=== PATIENT | male | born 1995 | race Caucasian/White ===

== ENCOUNTER 2022-01-07 20:08 | Emergency (ER) | payer MEDICAID, SELFPAY ==
[2022-01-07 20:09] VITALS: BP 138/90; PULSE 88; RESP 16; TEMP 36.6; O2SAT 97; BMI 42.3
--- NOTE | 2022-01-07 20:19 | EX.ED.DYSGE1 ---
HPI History of Present Illness Chief Complaint: Abd Pain Informant: patient Onset/Context/Timing Onset: Today Context: Gradual Onset Timing: Waxes and wanes Current Severity: Moderate Maximum Severity: Severe Narrative Narrative: Patient presents secondary to abdominal pain. He states it seems to be generalized diffusely but worse in the epigastrium. Pain started approximately 6 hours prior to arrival. He was able to eat breakfast this morning but did not want to eat lunch. Pain started around 2 PM. He does report a history of hiatal hernia. He is no longer on medication for this. No fever or chills. He has had a couple bowel movements today he states that are not quite normal but not diarrhea either. No urinary symptoms. No vomiting. [facility] Medical History (Updated 01/07/22 @ 21:[address] Ondina Tamez MD) GERD (gastroesophageal reflux disease) Hiatal hernia Home Medications hydrocodone-acetaminophen 5-325mg 5mg-325mg 1 tab PO Q6H PRN pain 3 days #10 tabs 01/07/22 [Rx Last Taken Unknown] omeprazole 40 mg capsule,delayed release 40 mg PO DAILY 4 weeks #28 caps 01/07/22 [Rx Last Taken Unknown] ondansetron 4 mg disintegrating tablet 4 mg PO Q8H PRN nausea and vomiting #10 tabs 01/07/22 [Rx Last Taken Unknown] Allergy/AdvReac Type Severity Reaction Status Date / Time No Known Allergies Allergy Verified 01/07/22 20:10 Social History Smoking Status: Current every day smoker tobacco type: cigarettes ROS ROS ED Constitutional Constitutional ED: Denies chills or fever(s) Eyes Eyes: Denies change in vision or discharge from eye(s) ENT ENT ED: Denies discharge from eye(s), rhinorrhea or sore throat Cardiovascular Cardiovascular: Denies chest pain or palpitations Respiratory/Chest Respiratory/Chest: Denies cough or dyspnea Gastrointestinal Gastrointestinal: Reports abdominal pain; Denies diarrhea, nausea or vomiting Genitourinary Genitourinary ED: Denies difficulty urinating or dysuria Musculoskeletal Musculoskeletal: Denies back pain or extremity pain Integumentary Denies Abrasions or rash Neurologic Neurologic: Denies headache(s) or weakness Allergic/Immunologic Allergic/Immunologic ED: Denies lip swelling or urticaria EXAM Physical Exam Const Vital Signs: 01/07/22 20:09 Temperature 97.8 F Temperature Source Temporal Pulse Rate 88 Respiratory Rate 16 Blood Pressure 138/90 H Blood Pressure Mean 106 Pulse Ox 97 Oxygen Delivery Method Room Air Positive well nourished and well developed General Appearance ED: well developed HEENT Reports moist mucous membranes Eyes PERRL and EOMs intact bilaterally Chest Wall inspection of chest normal and palpation of chest normal Resp normal respiratory effort and clear to auscultation bilaterally Cardio regular rate and regular rhythm GI GI Narrative: Mild diffuse tenderness of patient, worse in the epigastric region. No guarding or rebound. Hypoactive bowel sounds noted. Extremity normal to inspection Neuro oriented x3, CN's II-XII intact bilaterally and no sensory deficits noted Motor Exam: strength 5/5 throughout Psych mental status grossly normal Skin no rashes or lesions noted MDM MDM MDM Narrative Medical decision making narrative: Patient was given morphine and Zofran along with IV fluids. IV Protonix given. Lab work obtained. Lab Data Attestation: I reviewed the patient's lab results. Labs: Laboratory Results - last 24 hr 01/07/22 01/07/22 20:25 20:25 WBC 14.2 H RBC 5.55 Hgb 16.4 Hct 48.5 MCV 87.4 MCH 29.5 MCHC 33.8 RDW Std Deviation 38.9 RDW Coeff of Manav 12.3 Plt Count 308 MPV 9.1 Immature Gran % (Auto) 0.400 Neut % (Auto) 74.3 H Lymph % (Auto) 17.6 L [place] % (Auto) 5.6 Eos % (Auto) 1.7 Baso % (Auto) 0.4 Absolute Neuts (auto) 10.6 H Absolute Lymphs (auto) 2.50 Nucleated RBC % 0 Sodium 137 Potassium 3.6 Chloride 104 Carbon Dioxide 27.0 Anion Gap 6 BUN 11 Creatinine 1.07 Estim Creat Clear Calc 99.53 Est GFR (MDRD) Af Amer 109 Est GFR (MDRD) Non-Af 90 BUN/Creatinine Ratio 10.3 Glucose 100 Calcium 8.9 Total Bilirubin 0.50 Direct Bilirubin 0.18 AST 16 ALT 33 Alkaline Phosphatase 103 Total Protein 8.4 H Albumin 3.4 Globulin 5.0 H Lipase 56 L Radiography Diagnostic Testing: Clinical Impression(s) from Imaging Studies Abdomen/Pelvis CT 01/07/22 20:55 IMPRESSION: Mild splenomegaly. Gynecomastia. Small sliding hiatal hernia. No acute intra-abdominal pathology. Electronically Signed: Dion Li DO at 21:54 EDT , Treatment and Re-Evaluation Narrative: CBC significant for a white count of 14.2. Chemistry studies unremarkable with normal LFTs and lipase. In light of his epigastric pain and leukocytosis CT scan with IV contrast only is obtained. This reveals evidence of a small sliding hiatal hernia but no acute intra-abdominal pathology. Patient will be given analgesics for home along with Prilosec. He will be referred to GI for follow-up if not improving. Return instructions provided. Discharge Plan Triage Chief Complaint: Abd Pain ED Provider: Ondina Tamez Dx/Rx/DC Orders Clinical Impression: Abdominal pain, epigastric Instructions: ED Epigastric Pain Uncertain Cause Prescriptions: New hydrocodone-acetaminophen 5-325 mg tablet 1 tab PO Q6H PRN (Reason: pain) 3 Days Qty: 10 0RF omeprazole 40 mg capsule,delayed release(DR/EC) 40 mg PO DAILY 28 Days Qty: 28 0RF ondansetron 4 mg tablet,disintegrating 4 mg PO Q8H PRN (Reason: nausea and vomiting) Qty: 10 0RF Primary Care Provider: Care Physician,No Primary Referrals: Rl Cartwright DO [STAFF PHYSICIAN] - As Needed NOT,DEFINED [NON-STAFF] - Disposition Disposition: Home, Self Care
[2022-01-07] MEDS: Morphine 4 MG/ML Syringe IV (20:24)
[2022-01-07] MEDS: Ondansetron 4 MG/2 ML Vial IV (20:24)
[2022-01-07] MEDS: 0.9% Normal Saline 1,000 ML 150 ML IV (20:24)
[2022-01-07 20:30] LABS: Absolute Neutrophil Count 10.6 X10^3/uL (2.0-7.7); Basophil# 0.05 X10^3/uL; Basophil% 0.4 % (0-1); Eosinophil# 0.24 X10^3/uL; Eosinophils% 1.7 % (0-5); Hematocrit 48.5 % (40-54); Hemoglobin 16.4 g/dL (13.0-16.5); Lymphocyte % 17.6 % (19-41); Mean Corp Hgb Conc 33.8 g/dL (32-36); Mean Corpuscular Hgb 29.5 pg (27.0-32.0); Mean Corpuscular Volume 87.4 fL (80-94); Mean Platelet Vol. 9.1 fl (6.2-12.0); Monocyte# 0.79 X10^3/uL; Monocyte% 5.6 % (0-10); NRBC Flagged by Analyzer 0 % (0-5); Neutrophil # 10.58 X10^3/uL (2.7-7.7); Neutrophil % 74.3 % (47-70); Platelet Count 308 K/mm3 (150-450); RBC Distribution Width CV 12.3 % (11.6-14.6); RBC Distribution Width SD 38.9 fl (35.1-43.9); Red Blood Count 5.55 M/mm3 (4.6-6.2); White Blood Count 14.2 K/mm3 (4.4-11.0)
[2022-01-07 20:51] LABS: AST(SGOT) 16 U/L (15-37); Alanine Aminotransfer ALT/SGPT 33 U/L (16-61); Albumin, Serum 3.4 g/dL (3.2-5.0); Alkaline Phosphatase 103 U/L (45-117); Anion Gap 6 (5-15); BUN 11 mg/dL (7-18); BUN/Creat Ratio 10.3 RATIO (10-20); Bilirubin, Direct 0.18 mg/dL (0.00-0.30); Calcium,Total 8.9 mg/dL (8.5-10.1); Chloride 104 mmol/L (98-107); Creatinine, Serum 1.07 mg/dL (0.70-1.30); EST Glomerular Filtration Rate 90 mL/min (>60); Est Glom Filt Rate - Afr Amer 109 mL/min (>60); Estimated Creatinine Clearance 99.53 ml/min; Glucose 100 mg/dL (74-106); Lipase 56 U/L (73-393); Potassium 3.6 mmol/L (3.5-5.1); Protein, Total 8.4 g/dL (6.4-8.2); Sodium Level 137 mmol/L (136-145)
--- NOTE | 2022-01-07 20:55 | CT_ITS ---
INDICATION: abd pain, leukocytosis EXAMINATION: CT ABDOMEN AND PELVIS WITH CONTRAST - CT Abdomen And Pelvis W/ Contrast Injection TECHNIQUE: Helically acquired images were obtained of the abdomen and pelvis following IV contrast. A radiation dose optimization technique was used for this scan. IV Contrast dosage and agent: 100 mL of ISOVUE-300. Oral contrast: None. COMPARISON: None. FINDINGS: LOWER CHEST: Lung bases are clear. No cardiomegaly or pericardial effusion. There is mild bilateral gynecomastia. There is a sliding hiatal hernia. LIVER: Homogeneous. No focal mass. GALLBLADDER AND BILIARY TREE: No calcified gallstones. No gallbladder distension or wall edema. No intra- or extrahepatic biliary ductal dilation. PANCREAS: No focal cystic or solid mass. SPLEEN: 13.4 cm in length spleen measurement consistent with at least splenomegaly. Normal density and contour. No mass. ADRENAL GLANDS: No nodules. KIDNEYS, URETERS and BLADDER: Normal renal size and position. No mass. No hydronephrosis. Bladder is unremarkable. PERITONEUM: No ascites or free air. No other fluid collection. BOWEL: No evidence of acute appendicitis. No abnormally distended bowel loops or air fluid levels. No wall thickening or mass. No focal inflammatory changes. LYMPH NODES: No enlarged mesenteric or retroperitoneal lymph nodes. VESSELS: Aorta is non-dilated. REPRODUCTIVE ORGANS: Normal prostate gland. ABDOMINAL WALL: No discrete abdominal or pelvic wall hernia. BONES: No lytic or blastic abnormality. Distal thoracic spine vertebral body endplate herniation pits. No fracture. CT/Abdomen/Pelvis W IV Cont ONLY IMPRESSION: Mild splenomegaly. Gynecomastia. Small sliding hiatal hernia. No acute intra-abdominal pathology. Electronically Signed: Dion Li DO at 21:54 EDT ,
[2022-01-07 22:05] VITALS: BP 118/68; PULSE 70; RESP 15; O2SAT 98
== END 2022-01-07 22:06 | disposition home or self-care (01) ==
PROVIDERS: Emergency Provider Emergency Medicine; Visit Provider Emergency Medicine
DX: R10.13 Epigastric pain (principal); K21.9 Gastro-esophageal reflux disease without esophagitis; F17.210 Nicotine dependence, cigarettes, uncomplicated; Z79.899 Other long term (current) drug therapy
CPT/HCPCS: 74177; 80048; 80076; 83690; 85025; 96365; 96375; 99283; J7030; Q9967; J2405

== ENCOUNTER 2022-06-13 10:44 | Emergency (ER) | payer MEDICAID, SELFPAY ==
[2022-06-13 10:45] VITALS: BP 146/101; PULSE 62; RESP 18; TEMP 36.6; O2SAT 99; BMI 46.0
--- NOTE | 2022-06-13 11:54 | US_ITS ---
STUDY: ABDOMINAL ULTRASOUND - RIGHT UPPER QUADRANT REASON FOR VISIT: Male, 27 years old right upper quadrant pain. TECHNIQUE: Ultrasound evaluation of the right upper quadrant was performed with real-time and static jurado-scale imaging. TECHNICAL QUALITY: Limited. Examination limited due to a combination of factors including obesity and bowel gas. COMPARISON: None. FINDINGS: Liver: The liver is mildly enlarged and measures 18 cm. There is increased echogenicity consistent with fatty infiltration. The bile ducts are within normal limits. There is hepatic color flow. The direction of portal flow is hepatopetal. There is no demonstrated mass lesion. Gallbladder: Normal distended gallbladder. The gallbladder wall measures 2.0 mm. There is a negative sonographic Haque''s sign. There is no pericholecystic fluid. There are no gallstones. Common Bile Duct (C.B.D.): The common bile duct measures 7 mm. Pancreas: There is nonvisualization of the pancreas due to overlying bowel gas. Right Kidney: Normal size of the right kidney. The right kidney measures 10.3 cm x 5.9 cm x 4.3 cm. Normal renal cortex. The right cortex measures 1.2 cm. There is no demonstrated renal mass or cyst. There is no right hydronephrosis. US/Gallbladder IMPRESSION: Borderline hepatomegaly. Diffuse fatty infiltration of the liver. Electronically Signed: Hemant Wood MD at 13:27 EST ,
--- NOTE | 2022-06-13 11:55 | ED.VIS.GI ---
HPI HPI - GI History of Present Illness Chief Complaint: Abd Pain Narrative Narrative: 27-year-old male who denies significant past medical history presents with epigastric to right upper quadrant abdominal pain that has had since this morning. He relates remote history that he was seen in the emergency department a few months back and was told that his gallbladder was inflamed. However, he attempted to follow-up with a surgeon but was never able to connect. He presents with pain that began this morning, his last meal being yesterday evening. He denies any fevers but states he is felt chilled on occasion. No nausea or vomiting. He has had constipation but denies any diarrhea or other problems with bowel movements. No exacerbating or alleviating factors to his right upper quadrant to epigastric pain. States it feels more dull and achy, and almost crampy in nature. [facility] Medical History Anxiety Depression Former smoker GERD (gastroesophageal reflux disease) Hiatal hernia Home Medications omeprazole 40 mg capsule,delayed release 40 mg PO DAILY 4 weeks #28 caps 01/07/22 [Rx Last Taken Unknown] omeprazole 40 mg capsule,delayed release 40 mg PO DAILY #30 caps 06/13/22 [Rx Last Taken Unknown] Allergy/AdvReac Type Severity Reaction Status Date / Time No Known Allergies Allergy Verified 06/13/22 10:48 Social History Smoking Status: Current every day smoker tobacco type: cigarettes ROS ROS ED ROS Narrative Constitutional: No fever, rare chills. HEENT: No sore throat. No neck pain. No loss of vision. No rhinorrhea. Cardiovascular: No chest pain. No palpitations. No pedal edema. Respiratory: No cough, no shortness of breath. Abdominal: Right upper quadrant to epigastric abdominal pain. No nausea. No vomiting. Incomplete bowel movements/constipation, no diarrhea Genitourinary: No dysuria. No hematuria. Musculoskeletal: No myalgias. No arthralgias. Neurologic: No headaches. No dizziness. No lightheadedness. Skin: No rash. No change in color. Psychiatric: No depression. No anxiety. EXAM Physical Exam Narrative Exam Narrative: Afebrile. Vital signs noted. HEENT: Normocephalic. Atraumatic. PERRL, EOMI. Neck soft and supple. No point tenderness or step off. Cardiovascular: Regular rate and rhythm. No murmurs, rubs, or gallops appreciated. Respiratory: No tachypnea. Lungs clear to auscultation bilaterally. Gastrointestinal: Abdomen soft, obese, with mild tenderness in the right upper quadrant with normoactive bowel sounds. No rebound or guarding. Neurological: Awake. Alert. Nonfocal, nonlateralizing. Skin: No rash. Normal color. No pallor. Musculoskeletal: No pedal edema. Full range of motion extremities. Const Vital Signs: 06/13/22 10:45 Temperature 97.9 F Temperature Source Temporal Pulse Rate 62 Respiratory Rate 18 Blood Pressure 146/101 H Blood Pressure Mean 116 Pulse Ox 99 Oxygen Delivery Method Room Air MDM MDM MDM Narrative Medical decision making narrative: Comprehensive work-up was pursued. Patient has slightly elevated white count of 11.2 which I think is nonspecific, hemoglobin normal at 15 0.4, hematocrit 46.4. Platelet count normal at 330. Sodium slightly low at 135 but normal chloride of 99. BUN normal at 18 with a normal creatinine of 0.9. Normal anion gap of 7. LFTs are unremarkable except for low AST of 14. Lipase is low at 69. Gallbladder ultrasound shows borderline hepatomegaly and diffuse fatty infiltration of the liver but no evidence of gallstones. No gallbladder wall thickening or pericholecystic fluid. At this point in time, his epigastric pain may be more from gastritis. He will be given omeprazole again and prescription form as that is listed as his home meds. I feel he can be discharged safely home with follow-up. Return instructions were reviewed. Disposition is discharged home in stable condition. Lab Data Attestation: I reviewed the patient's lab results. Labs: Laboratory Results - last 24 hr 06/13/22 06/13/22 11:20 11:20 WBC 11.2 H RBC 5.29 Hgb 15.4 Hct 46.4 MCV 87.7 MCH 29.1 MCHC 33.2 RDW Std Deviation 38.8 RDW Coeff of Manav 12.1 Plt Count 330 MPV 9.4 Immature Gran % (Auto) 0.500 Neut % (Auto) 64.5 Lymph % (Auto) 25.4 [place] % (Auto) 7.2 Eos % (Auto) 1.9 Baso % (Auto) 0.5 Absolute Neuts (auto) 7.2 Absolute Lymphs (auto) 2.84 Nucleated RBC % 0 Sodium 135 L Potassium 3.7 Chloride 99 Carbon Dioxide 29.0 Anion Gap 7 BUN 18 Creatinine 0.96 Estim Creat Clear Calc 94.67 Est GFR (MDRD) Af Amer 123 Est GFR (MDRD) Non-Af 102 BUN/Creatinine Ratio 18.8 Glucose 91 Calcium 8.6 Total Bilirubin 0.50 AST 14 L ALT 27 Alkaline Phosphatase 106 Total Protein 8.2 Albumin 3.2 Globulin 5.0 H Albumin/Globulin Ratio 0.6 L Lipase 69 L Radiography Diagnostic Testing: Clinical Impression(s) from Imaging Studies Gallbladder Ultrasound 06/13/22 11:54 IMPRESSION: Borderline hepatomegaly. Diffuse fatty infiltration of the liver. Electronically Signed: Hemant Wood MD at 13:27 EST , Discharge Plan Triage Chief Complaint: Abd Pain ED Provider: Chip Diaz Dx/Rx/DC Orders Clinical Impression: Epigastric abdominal pain, Abdominal pain, RUQ Instructions: ED Gastritis Ulcer No Abx, ED Abdominal Pain Unkn Cause Male... Prescriptions: New omeprazole 40 mg capsule,delayed release(DR/EC) 40 mg PO DAILY Qty: 30 0RF No Action omeprazole 40 mg capsule,delayed release(DR/EC) 40 mg PO DAILY 28 Days Qty: 28 0RF Stand Alone Forms: ED Work / School Excuse Primary Care Provider: Care Physician,No Primary Referrals: Friend,Rl, DO [Med Staff - Active Staff] - As soon as possible Care Physician,No Primary [Primary Care Provider] - Disposition Disposition: Home, Self Care
[2022-06-13] MEDS: 0.9% Normal Saline 1,000 ML 1000 ML IV (12:06)
[2022-06-13] MEDS: Morphine 4 MG/ML Syringe IV (12:06)
[2022-06-13] MEDS: Ondansetron 4 MG/2 ML Vial IV (12:08)
[2022-06-13 12:20] LABS: Absolute Lymphocyte Count 2.84 X10^3/uL (0.83-4.51); Absolute Neutrophil Count 7.2 X10^3/uL (2.0-7.7); Basophil# 0.06 X10^3/uL; Basophil% 0.5 % (0-1); Eosinophil# 0.21 X10^3/uL; Eosinophils% 1.9 % (0-5); Hematocrit 46.4 % (40-54); Hemoglobin 15.4 g/dL (13.0-16.5); Lymphocyte # 2.84 X10^3/ul (0.83-4.51); Lymphocyte % 25.4 % (19-41); Mean Corp Hgb Conc 33.2 g/dL (32-36); Mean Corpuscular Hgb 29.1 pg (27.0-32.0); Mean Corpuscular Volume 87.7 fL (80-94); Mean Platelet Vol. 9.4 fl (6.2-12.0); Monocyte% 7.2 % (0-10); NRBC Flagged by Analyzer 0 % (0-5); Neutrophil # 7.21 X10^3/uL (2.7-7.7); Neutrophil % 64.5 % (47-70); Platelet Count 330 K/mm3 (150-450); RBC Distribution Width CV 12.1 % (11.6-14.6); RBC Distribution Width SD 38.8 fl (35.1-43.9); Red Blood Count 5.29 M/mm3 (4.6-6.2); White Blood Count 11.2 K/mm3 (4.4-11.0)
[2022-06-13 12:38] LABS: ALB/GLOB Ratio 0.6 RATIO (0.9-2.4); AST(SGOT) 14 U/L (15-37); Alanine Aminotransfer ALT/SGPT 27 U/L (16-61); Albumin, Serum 3.2 g/dL (3.2-5.0); Alkaline Phosphatase 106 U/L (45-117); Anion Gap 7 (5-15); BUN 18 mg/dL (7-18); BUN/Creat Ratio 18.8 RATIO (10-20); Calcium,Total 8.6 mg/dL (8.5-10.1); Chloride 99 mmol/L (98-107); Creatinine, Serum 0.96 mg/dL (0.70-1.30); EST Glomerular Filtration Rate 102 mL/min (>60); Est Glom Filt Rate - Afr Amer 123 mL/min (>60); Estimated Creatinine Clearance 94.67 ml/min; Glucose 91 mg/dL (74-106); Lipase 69 U/L (73-393); Potassium 3.7 mmol/L (3.5-5.1); Protein, Total 8.2 g/dL (6.4-8.2); Sodium Level 135 mmol/L (136-145)
--- NOTE | 2022-06-13 13:33 | CM.ED ---
SW Note Referral Source: Case Find Referral Reason: No Primary Care Physician (PCP) SW reviewed chart and noted that patient has no PCP. SW provided patient with list of [facility] and [facility] Physician List for reference. No other issues or concerns voiced at this time. SW remains available for any additional needs. Plan: Provided patient with PCP information Luba QUISPE
[2022-06-13 14:10] VITALS: BP 120/64; PULSE 57; RESP 16; O2SAT 98
== END 2022-06-13 14:10 | disposition home or self-care (01) ==
PROVIDERS: Emergency Provider Emergency Medicine; Visit Provider Emergency Medicine
DX: R10.13 Epigastric pain (principal); R16.0 Hepatomegaly, not elsewhere classified; F17.200 Nicotine dependence, unspecified, uncomplicated; K76.0 Fatty (change of) liver, not elsewhere classified; R10.11 Right upper quadrant pain
CPT/HCPCS: 76705; 80053; 83690; 85025; 96361; 96374; 96375; 99284; J7030; J2405

== ENCOUNTER 2022-07-02 13:24 | Emergency (ER) | payer MEDICAID, SELFPAY ==
[2022-07-02 13:25] VITALS: BP 155/99; PULSE 48; RESP 15; TEMP 36.1; O2SAT 99; BMI 39.9
--- NOTE | 2022-07-02 13:43 | EDS_ITS ---
HPI HPI - GI History of Present Illness Chief Complaint: Abd Pain Narrative Narrative: 27-year-old male presents with epigastric abdominal pain that has had since 3 or 4:00 this morning, approximately 10 to 11 hours ago. He states that he has been dealing with gastritis for the last month or 2 for which he takes omeprazole. He describes sharp pain in the epigastrium. He also has history of hiatal hernia. He has an appointment with Dr. Cartwright with gastroenterology in August, 2 months from now. Denies any exacerbating or alleviating symptoms. He was nauseated and vomited once and stated that there were red chunks in it. He took his omeprazole this morning but is still having problems with epigastric pain. No previous abdominal surgeries. [facility] Medical History Anxiety Depression Former smoker GERD (gastroesophageal reflux disease) Hiatal hernia Home Medications omeprazole 40 mg capsule,delayed release 40 mg PO DAILY 4 weeks #28 caps 01/07/22 [Rx Last Taken Unknown] omeprazole 40 mg capsule,delayed release 40 mg PO DAILY #30 caps 06/13/22 [Rx Last Taken Unknown] Allergy/AdvReac Type Severity Reaction Status Date / Time No Known Allergies Allergy Verified 07/02/22 13:25 Social History Smoking Status: Current every day smoker tobacco type: cigarettes ROS ROS ED ROS Narrative Constitutional: No fever, no chills. HEENT: No sore throat. No neck pain. No loss of vision. No rhinorrhea. Cardiovascular: No chest pain. No palpitations. No pedal edema. Respiratory: No cough, no shortness of breath. Abdominal: Positive epigastric pain/abdominal pain. Positive nausea. 1 episode of vomiting. No diarrhea. Genitourinary: No dysuria. No hematuria. Musculoskeletal: No myalgias. No arthralgias. Neurologic: No headaches. No dizziness. No lightheadedness. Skin: No rash. No change in color. Psychiatric: No depression. No anxiety. EXAM Physical Exam Narrative Exam Narrative: Afebrile. Vital signs noted. HEENT: Normocephalic. Atraumatic. PERRL, EOMI. Neck soft and supple. No point tenderness or step off. Cardiovascular: Regular rate and rhythm. No murmurs, rubs, or gallops appreciated. Respiratory: No tachypnea. Lungs clear to auscultation bilaterally. Gastrointestinal: Abdomen soft, minimal tenderness to palpation epigastrium with normoactive bowel sounds. No rebound or guarding. Negative Haque sign. Neurological: Awake. Alert. Nonfocal, nonlateralizing. Skin: No rash. Normal color. No pallor. Musculoskeletal: No pedal edema. Full range of motion extremities. Const Vital Signs: 07/02/22 13:25 07/02/22 14:04 Temperature 97.0 F L Temperature Source Temporal Pulse Rate 48 L 50 L Respiratory Rate 15 Blood Pressure 155/99 H Blood Pressure Mean 117 Pulse Ox 99 100 Oxygen Delivery Method Room Air Room Air MDM MDM MDM Narrative Medical decision making narrative: Pancreatitis work-up was pursued. I do feel he may be having more of a gastritis type problem. I reviewed his prior EMR, and I saw him on 06/13/2022, where he was having the same type of symptoms. He had negative work-up at that time including ultrasound of the gallbladder. This is the same pain that he had previously. I am not concerned about stomach torsion. He has slightly elevated white count of 12.7 which I think is nonspecific, hemoglobin normal at 16.0, CMP is remarkable for glucose of 112 and a normal anion gap/low at 4. LFTs show AST of 11 and ALT of 26 with normal alk phos. Lipase is low at 66. I do not feel that any imaging is indicated currently. He feels mildly improved after GI cocktail. Smoking cessation was discussed. I reviewed return instructions with him. I do not feel CT imaging is indicated. He will increase his omeprazole to twice a day and follow-up with gastroenterology. Disposition was discharged home in stable condition. Lab Data Attestation: I reviewed the patient's lab results. Labs: Laboratory Results - last 24 hr 07/02/22 07/02/22 14:00 14:00 WBC 12.7 H RBC 5.32 Hgb 16.0 Hct 46.3 MCV 87.0 MCH 30.1 MCHC 34.6 RDW Std Deviation 38.4 RDW Coeff of Manav 12.1 Plt Count 349 MPV 9.1 Immature Gran % (Auto) 0.300 Neut % (Auto) 70.4 H Lymph % (Auto) 21.5 [place] % (Auto) 5.7 Eos % (Auto) 1.7 Baso % (Auto) 0.4 Absolute Neuts (auto) 8.9 H Absolute Lymphs (auto) 2.73 Nucleated RBC % 0 Sodium 138 Potassium 4.1 Chloride 105 Carbon Dioxide 29.0 Anion Gap 4 L BUN 13 Creatinine 1.21 Estim Creat Clear Calc 93.33 Est GFR (MDRD) Af Amer 94 Est GFR (MDRD) Non-Af 78 BUN/Creatinine Ratio 10.7 Glucose 112 H Calcium 9.2 Total Bilirubin 0.40 AST 11 L ALT 26 Alkaline Phosphatase 103 Total Protein 8.9 H Albumin 3.5 Globulin 5.4 H Albumin/Globulin Ratio 0.6 L Lipase 66 L Discharge Plan Triage Chief Complaint: Abd Pain ED Provider: Chip Diaz Dx/Rx/DC Orders Clinical Impression: Epigastric pain, Gastritis Instructions: ED Gastritis (Adult), ED Abdominal Pain Unkn Cause Male... Prescriptions: No Action omeprazole 40 mg capsule,delayed release(DR/EC) 40 mg PO DAILY 28 Days Qty: 28 0RF omeprazole 40 mg capsule,delayed release(DR/EC) 40 mg PO DAILY Qty: 30 0RF Primary Care Provider: Care Physician,No Primary Referrals: Care Physician,No Primary [Primary Care Provider] - Activity Restrictions/Additional Instructions: Increase your omeprazole to twice a day. Follow-up with gastroenterology as soon as possible. Stop smoking. Disposition Disposition: Home, Self Care
[2022-07-02] MEDS: Mag Hydrox/Al Hydrox/Simeth 30 ML UDC PO (13:53)
[2022-07-02] MEDS: 0.9% Normal Saline 1,000 ML 1000 ML IV (14:03)
[2022-07-02 14:04] VITALS: PULSE 50; O2SAT 100
[2022-07-02 14:16] LABS: Absolute Lymphocyte Count 2.73 X10^3/uL (0.83-4.51); Absolute Neutrophil Count 8.9 X10^3/uL (2.0-7.7); Basophil# 0.05 X10^3/uL; Basophil% 0.4 % (0-1); Eosinophil# 0.22 X10^3/uL; Eosinophils% 1.7 % (0-5); Hematocrit 46.3 % (40-54); Lymphocyte # 2.73 X10^3/ul (0.83-4.51); Lymphocyte % 21.5 % (19-41); Mean Corp Hgb Conc 34.6 g/dL (32-36); Mean Corpuscular Hgb 30.1 pg (27.0-32.0); Mean Platelet Vol. 9.1 fl (6.2-12.0); Monocyte# 0.72 X10^3/uL; Monocyte% 5.7 % (0-10); NRBC Flagged by Analyzer 0 % (0-5); Neutrophil # 8.93 X10^3/uL (2.7-7.7); Neutrophil % 70.4 % (47-70); Platelet Count 349 K/mm3 (150-450); RBC Distribution Width CV 12.1 % (11.6-14.6); RBC Distribution Width SD 38.4 fl (35.1-43.9); Red Blood Count 5.32 M/mm3 (4.6-6.2); White Blood Count 12.7 K/mm3 (4.4-11.0)
[2022-07-02 14:32] LABS: ALB/GLOB Ratio 0.6 RATIO (0.9-2.4); AST(SGOT) 11 U/L (15-37); Alanine Aminotransfer ALT/SGPT 26 U/L (16-61); Albumin, Serum 3.5 g/dL (3.2-5.0); Alkaline Phosphatase 103 U/L (45-117); Anion Gap 4 (5-15); BUN 13 mg/dL (7-18); BUN/Creat Ratio 10.7 RATIO (10-20); Calcium,Total 9.2 mg/dL (8.5-10.1); Chloride 105 mmol/L (98-107); Creatinine, Serum 1.21 mg/dL (0.70-1.30); EST Glomerular Filtration Rate 78 mL/min (>60); Est Glom Filt Rate - Afr Amer 94 mL/min (>60); Estimated Creatinine Clearance 93.33 ml/min; Globulin 5.4 g/dL (2.2-4.2); Glucose 112 mg/dL (74-106); Lipase 66 U/L (73-393); Potassium 4.1 mmol/L (3.5-5.1); Protein, Total 8.9 g/dL (6.4-8.2); Sodium Level 138 mmol/L (136-145)
== END 2022-07-02 15:13 | disposition home or self-care (01) ==
PROVIDERS: Emergency Provider Emergency Medicine; Visit Provider Emergency Medicine
DX: R10.13 Epigastric pain (principal); K29.70 Gastritis, unspecified, without bleeding; R74.8 Abnormal levels of other serum enzymes; K21.9 Gastro-esophageal reflux disease without esophagitis; R11.2 Nausea with vomiting, unspecified; F32.A Depression, unspecified; F41.9 Anxiety disorder, unspecified; F17.210 Nicotine dependence, cigarettes, uncomplicated; Z87.891 Personal history of nicotine dependence
CPT/HCPCS: 80053; 83690; 85025; 96360; 99283; J7030; A4216

== ENCOUNTER → 2022-09-08 | Outpatient (CLI) | payer MEDICAID, SELFPAY ==
[2022-09-08 13:39] LABS: Erythrocyte Sedimentation Rate 20 mm/hr (0-20)
[2022-09-08 13:41] LABS: Absolute Lymphocyte Count 2.45 X10^3/uL (0.83-4.51); Absolute Neutrophil Count 5.6 X10^3/uL (2.0-7.7); Basophil# 0.04 X10^3/uL; Basophil% 0.4 % (0-1); Eosinophil# 0.19 X10^3/uL; Eosinophils% 2.1 % (0-5); Hematocrit 47.1 % (40-54); Hemoglobin 15.7 g/dL (13.0-16.5); Lymphocyte # 2.45 X10^3/ul (0.83-4.51); Lymphocyte % 27.1 % (19-41); Mean Corp Hgb Conc 33.3 g/dL (32-36); Mean Corpuscular Hgb 29.7 pg (27.0-32.0); Mean Platelet Vol. 9.6 fl (6.2-12.0); Monocyte% 7.7 % (0-10); NRBC Flagged by Analyzer 0 % (0-5); Neutrophil # 5.64 X10^3/uL (2.7-7.7); Neutrophil % 62.5 % (47-70); Platelet Count 332 K/mm3 (150-450); RBC Distribution Width CV 12.3 % (11.6-14.6); RBC Distribution Width SD 39.9 fl (35.1-43.9); Red Blood Count 5.29 M/mm3 (4.6-6.2)
[2022-09-08 13:43] LABS: International Normalized Ratio 1.1; Prothrombin Time (Protime)PT. 13.4 SECONDS (11.7-14.9)
[2022-09-08 14:13] LABS: ALB/GLOB Ratio 0.6 RATIO (0.9-2.4); AST(SGOT) 17 U/L (15-37); Alanine Aminotransfer ALT/SGPT 25 U/L (16-61); Albumin, Serum 3.3 g/dL (3.2-5.0); Alkaline Phosphatase 101 U/L (45-117); Anion Gap 4 (5-15); BUN 9 mg/dL (7-18); BUN/Creat Ratio 8.3 RATIO (10-20); Calcium,Total 8.8 mg/dL (8.5-10.1); Chloride 104 mmol/L (98-107); Creatinine, Serum 1.09 mg/dL (0.70-1.30); EST Glomerular Filtration Rate 87 mL/min (>60); Est Glom Filt Rate - Afr Amer 106 mL/min (>60); Estradiol 61.3 pg/mL; Ferritin 34 ng/mL (26-388); Follicle Stimulating Hormone 2.2 mIU/mL; Globulin 5.1 g/dL (2.2-4.2); Glucose 86 mg/dL (74-106); LDH 129 U/L (87-241); Luteinizing Hormone 2.6 mIU/mL; Potassium 3.7 mmol/L (3.5-5.1); Prolactin 16.2 ng/mL; Protein, Total 8.4 g/dL (6.4-8.2); Sodium Level 138 mmol/L (136-145)
[2022-09-08 14:31] LABS: HIV - WCH Non-Reactive (Nonreactive)
[2022-09-11 13:07] LABS: Anti-Centromere B Ab <0.2 AI (0.0-0.9); Anti-Chromatin <0.2 AI (0.0-0.9); Anti-Jo <0.2 AI (0.0-0.9); Anti-Scleroderma-70 AB <0.2 AI (0.0-0.9); RNP Ab <0.2 AI (0.0-0.9); SJOGREN'S Anti-SS-A test < 0.2 AI (0.0-0.9); SJOGREN'S Anti-SS-B test < 0.2 AI (0.0-0.9); Smith Ab <0.2 AI (0.0-0.9)
[2022-09-11 13:19] LABS: Anti-Mitochondrial AB <20.0 Units (0.0-20.0); Anti-dsDNA Ab <1 IU/mL (0-9)
[2022-09-12 02:07] LABS: Angiotensin Convert Enzyme 34 U/L (14-82); Ceruloplasmin 30.2 mg/dL (16.0-31.0); Cytoplasmic Ab (C-ANCA) 1:20 titer (Neg:<1:20); HEPATITIS B SURFACE AG Negative (Negative); Hep C Antibodies Non Reactive (Non Reactive); Hepatitis A IgM Antibody Negative (Negative); Hepatitis B Core AB IgM Negative (Negative)
[2022-09-12 14:31] LABS: AFP, Tumor Marker < 1.8 ng/mL (0.0-5.7); Anti-Smooth Muscle ABS 11 Units (0-19); Copper, Serum or Plasma 146 ug/dL (63-121); EBV Acute VCA IgM < 36.0 U/mL (0.0-35.9); EBV Nuclear Antigen IgG > 600.0 U/mL (0.0-17.9); Haptoglobin 136 mg/dL (17-317); Perinuclear Ab (P-ANCA) <1:20 titer (Neg:<1:20)
== END | disposition home or self-care (01) ==
PROVIDERS: Visit Provider Internal Medicine Gastroenterology
DX: R16.0 Hepatomegaly, not elsewhere classified (principal); R16.1 Splenomegaly, not elsewhere classified; N62 Hypertrophy of breast; F12.90 Cannabis use, unspecified, uncomplicated
CPT/HCPCS: 36415; 80053; 80074; 82105; 82140; 82164; 82390; 82525; 82670; 82728; 83001; 83002; 83010; 83036; 83516; 83615; 84146; 85025; 85610; 85652; 86140; 86225; 86235; 86256; 86644; 86664; 86665; 86703

== ENCOUNTER → 2022-09-21 | Outpatient (CLI) | payer MEDICAID, SELFPAY ==
--- NOTE | 2022-09-21 09:47 | US_ITS ---
STUDY: ABDOMINAL ULTRASOUND - ELASTOGRAPHY REASON FOR VISIT: Male, 27 years old. Hepatomegaly and fatty infiltration of the liver. TECHNIQUE: Liver stiffness measurements were obtained on a [employer] RS 85 ultrasound machine using a CA 1-7 probe following the SRU guidelines. 3 measurements were obtained using a 2-D-SWE method. TheIQR/M was 22% suggesting a quality data set. TECHNICAL QUALITY: Adequate. COMPARISON: Comparison is made with prior study done earlier today. FINDINGS: Liver: Hepatomegaly and fatty infiltration of the liver. Median liver stiffness measured 5.5 kPa. US/Elastography Parenchyma/Organ IMPRESSION: Liver stiffness measures 5.5 kPa compatible with F0-F1 (Normal to mild liver fibrosis) Metavir score. Electronically Signed: Hemant Wood MD at 15:10 EST ,
--- NOTE | 2022-09-21 09:47 | US_ITS ---
STUDY: ABDOMINAL ULTRASOUND - RIGHT UPPER QUADRANT REASON FOR VISIT: Male, 27 years old liver, hepatomegaly TECHNIQUE: Ultrasound evaluation of the right upper quadrant was performed with real-time and static jurado-scale imaging. TECHNICAL QUALITY: Limited. Examination limited due to obesity. COMPARISON: Comparison is made with prior study dated June 13, 2022. FINDINGS: Liver: The liver is mildly enlarged and measures 18.1 cm. There is increased echogenicity consistent with fatty infiltration. The bile ducts are within normal limits. There is hepatic color flow. The direction of portal flow is hepatopetal. There is no demonstrated mass lesion. Gallbladder: Normal distended gallbladder. The gallbladder wall measures 2.6 mm. There is a negative sonographic Haque''s sign. There is no pericholecystic fluid. There is a solitary echogenic gallstone within the gallbladder. The gallstone is in the neck of the gallbladder and measures 1.3 cm x 1.5 cm x 1.2 cm. Common Bile Duct (C.B.D.): The common bile duct measures 8.1 mm. Pancreas: There is nonvisualization of the pancreas due to overlying bowel gas. Right Kidney: Normal size of the right kidney. The right kidney measures 10.7 cm x 5.2 cm x 5.6 cm. Normal renal cortex. The right cortex measures 1.9 cm. There is no demonstrated renal mass or cyst. There is no right hydronephrosis. US/Abdomen Limited IMPRESSION: Stable hepatomegaly and fatty infiltration of the liver. Solitary gallstone in the neck of the gallbladder. Electronically Signed: Hemant Wood MD at 15:08 EST ,
== END | disposition home or self-care (01) ==
PROVIDERS: Visit Provider Internal Medicine Gastroenterology
DX: K76.0 Fatty (change of) liver, not elsewhere classified (principal); K80.20 Calculus of gallbladder without cholecystitis without obstruction; R16.1 Splenomegaly, not elsewhere classified
CPT/HCPCS: 76705; 76981

== ENCOUNTER 2023-01-22 10:47 | Day surgery (SDC) | payer MEDICAID, SELFPAY ==
[2023-01-22] VITALS (7 sets, daily range): BP systolic 99–117; BP diastolic 48–75; PULSE 54–78; RESP 16–18; TEMP 36.5–37; O2SAT 94–97; BMI 44.1
--- NOTE | 2023-01-22 | EGD_PTH ---
PATIENT: JUDI VERONICA LOC: EN U#:[id number] AGE/SX: 27/M ROOM: RE01/22/[address]: Dr. Rl Cartwright DO : 1995 BED: DIS: 01/22/2023 SPEC #: [id number] RECD: 01/22/23 14:49 STATUS: FRAN REAlexei #: [id number] GEE: 01/22/23 00:[address]: Rl Cartwright DEPT: SURGICAL PATHOLOGY RECD BY: Tyler Sue ENTERED: 01/23/23 08:32 SP TYPE: EGD BIOPSY OTHR DR: No Primary Care Phys Tissues: A - Duodenum, NOS B - Esophageal mucous membrane C - Ileum, NOS D - COLON BIOPSY Procedures: Special Stain Group II Surgery Specimen Level IV Alcian Blue/PAS (control) HEADER OPERATION: Colonoscopy, EGD biopsy PRE-OP DIAGNOSIS: Gynecomastia, hiatal hernia, hepatomegaly, splenomegaly TISSUE SUBMITTED: A. Duodenum, B. Distal esophagus, C. Terminal ileum, D. Random colon MICROSCOPIC DIAGNOSIS A. Duodenum, biopsy: Fragments of duodenal mucosa, no pathologic diagnosis. B. Distal esophagus, biopsy: Fragments of gastroesophageal mucosa with chronic inflammation. Intestinal metaplasia (goblet cell metaplasia) not identified. C. Terminal ileum, biopsy: Fragments of small intestinal mucosa with focal minimal acute inflammation. D. Colon, random biopsy: Fragments of colonic mucosa, no pathologic diagnosis. SJ: 01/24/2023 COMMENT Alcian blue/PAS stain with matched control is used in the evaluation of the specimen. MICROSCOPIC DESCRIPTION Slides are reviewed. GROSS DESCRIPTION A. Received is one container labeled with the patient name and designated duodenum. The specimen consists of two irregular fragments of light triplett soft tissue that in aggregate measure 0.6 x 0.3 x 0.1 cm. The specimen is totally submitted in one cassette. B. Received is one container labeled with the patient name and designated distal esophagus. The specimen consists of two irregular fragments of light triplett soft tissue that in aggregate measure 0.9 x 0.5 x 0.1 cm. The specimen is totally submitted in one cassette. C. Received is one container labeled with the patient name and designated terminal ileum. The specimen consists of two irregular fragments of light triplett soft tissue that in aggregate measure 1.0 x 0.5 x 0.1 cm. The specimen is totally submitted in one cassette. / D. Received is one container labeled with the patient name and designated random colon. The specimen consists of two irregular fragments of light triplett soft tissue that in aggregate measure 1 x 0.3 x 0.1] cm. The specimen is totally submitted in one cassette. / 01/23/2023 TC: 3 CPT:65549 x 4, 28635
[2023-01-22] MEDS: Lactated Ringers 1,000 ML 15 ML IV (11:15)
--- NOTE | 2023-01-22 11:43 | HP.PCM_ITS ---
History and Physical Date of Admission: 01/22/23 7 M who presents to the office today for Initial consult. [facility] depression/anxiety. [facility] ED 01.07.22 with generalized abdominal pain though worse in epigastrium; onset 6 months prior and occurs intermittently. No acute finding during workup and discharged with analgesics and Prilosec. ? Biochemical workup CBC, CMP, LFT without pertinent abnormality. ? Lipase L56 ? CT abd/pel sliding hiatal hernia; bilateral gynecomastia; splenomegaly 13.4cm [facility] ED 06.13.22 with epigastric to RUQ abd pain. Reports being told he had an inflamed gallbladder but was unable to follow up with general surgery as outpatient. No acute findings and discharged. ? Biochemical workup CBC, CMP, LFT without pertinent abnormality. ? Lipase L69 ? US RUQ? hepatomegaly 18cm with fatty infiltration. [facility] ED 07.02.22 epigastric abd pain. Reports dealing with gastritis for two months for which he uses omeprazole. No acute findings and improvement following GI cocktail. Cigarette smoking cessation discussed. Increased omeprazole to BID. ? Biochemical workup CBC, CMP, LFT without pertinent abnormality. ? Lipase L66 *BGI established 09.08.22 stomach discomfort/pain, goes through phases in which they are better and worse, present daily and exacerbated by PO intake. LLQ discomfort intermittent with BM which continues as a dull ache in the stomach. BM present each day with minimal/no difficulty. Feels full all the time with reduced PO intake as a result. Marijuana use daily. Cigarette use less the 1PPD. ROS Const Constitutional: No anorexia, fatigue, fever(s), weight change or sleep problems Eyes Eyes: No change in vision ENT ENT: No abnormal hearing, difficulty swallowing, mouth lesions, tongue swelling or throat swelling Resp Respiratory: No cough or shortness of breath Cardio Cardiology: No chest pain at rest, chest pain with exertion, shortness of breath or dyspnea on exertion Gastro GI: No difficulty swallowing Genitourinary Male: No difficulty urinating or burning urination Musc Musculoskeletal: No joint pain, joint swelling, muscle weakness or decreased muscle mass Skin Skin: No hair loss in leg, yellowing of the eye, itchy eyes, rash, skin ulcer or skin swelling Neuro Neurology: No abnormal hearing, abnormal movements, confusion, unsteady gait/balance or memory loss Psych Psychiatric: No anxiety, No confusion and No memory loss Endo Endocrine: No fatigue or weight change Aller/Imm Allergy/Immunologic: No itchy eyes, throat swelling or tongue swelling Leon/Lymp Hematologic/Lymphatic: No easy bleeding, easy bruising or enlarged lymph nodes Exam Const General: cooperative and comfortable Nutritional Appearance: average body habitus and well nourished HENMT Head: normal to inspection Ears: hearing grossly normal bilaterally Nose: external nose normal Face and sinus: normal facial exam Mouth: oral mucosae normal Throat: posterior oropharynx normal Eyes General: appearance normal, both eyes and all related structures Neck Neck: normal visual inspection Chest Chest palpation & inspection: normal inspection of the chest and normal palpation of entire chest wall Resp Effort & Inspection: normal respiratory effort Auscultation: Bilateral: Clear to Auscultation Cardio Palpation: normal PMI Rate: regular rate Rhythm: regular rhythm GI Inspection: normal to inspection Auscultation: normal bowel sounds Percussion: normal to percussion Palpation: no hepatosplenomegaly Skin General: no rashes or lesions noted Neuro General: patient alert Extrem General: normal to inspection Psych Affect: normal affect Quality Reporting Tobacco Screening ([facility] 138) Smoking Status: Current every day smoker Assessment and Plan Assessment and Plan (1) Gynecomastia: Status: Chronic Plan: Gynecomastia was seen on imaging. We will check a serum prolactin level cortisol level. May also consider MRI of the pituitary gland. (2) Marijuana use: Status: Chronic Plan: I think his marijuana use could be contributing to him developing marijuana hyperemesis syndrome. However we will get work-up including gastric emptying study biochemical work-up and upper endoscopy prior to making a decision on cyclic vomiting syndrome or marijuana hyperemesis. (3) Hiatal hernia: Status: Chronic Plan: We will evaluate his hiatal hernia that is seen on imaging when he gets upper endoscopy. Recommend PPI therapy once a day for now. (4) Hepatomegaly: Status: Chronic Plan: Hepatomegaly likely secondary to fatty liver disease. We will need to get a FibroScan and possibly liver biopsy in the future as he does have mild splenomegaly also which could signify portal hypertension. (5) Splenomegaly: Status: Acute Orders: Orders Estradiol 09/08/22 F12.90 - Cannabis use, unspecified, uncomplicated, N62 - Hyp ertrophy of breast FSH and LH 09/08/22 F12.90 - Cannabis use, unspecified, uncomplicated, N62 - Hypertrophy of breast Prolactin 09/08/22 F12.90 - Cannabis use, unspecified, uncomplicated, N62 - Hypertrophy of breast HIV - [facility] 09/08/22 R16.0 - Hepatomegaly, not elsewhere classified, R16.1 - Splenomegaly, not elsewhere classified Comprehensive Metabolic Profil 09/08/22 R16.0 - Hepatomegaly, not elsewhere classified, R16.1 - Splenomegaly, not elsewhere classified CRP 09/08/22 R16.0 - Hepatomegaly, not elsewhere classified, R16.1 - Splenomegaly, not elsewhere classified Ferritin 09/08/22 R16.0 - Hepatomegaly, not elsewhere classified, R16.1 - Splenomegaly, not elsewhere classified LDH 09/08/22 R16.0 - Hepatomegaly, not elsewhere classified, R16.1 - Splenomegaly, not elsewhere classified Hemoglobin A1c 09/08/22 R16.0 - Hepatomegaly, not elsewhere classified, R16.1 - Splenomegaly, not elsewhere classified Prothrombin Time w/INR 09/08/22 R16.0 - Hepatomegaly, not elsewhere classified, R16.1 - Splenomegaly, not elsewhere classified CBC W/Diff, Automated 09/08/22 R16.0 - Hepatomegaly, not elsewhere classified, R16.1 - Splenomegaly, not elsewhere classified Erythrocyte Sed Rate 09/08/22 R16.0 - Hepatomegaly, not elsewhere classified, R16.1 - Splenomegaly, not elsewhere classified Anti-Mitochondrial AB 09/08/22 R16.0 - Hepatomegaly, not elsewhere classified, R16.1 - Splenomegaly, not elsewhere classified KRAIG Comprehensive Panel 09/08/22 R16.0 - Hepatomegaly, not elsewhere classified, R16.1 - Splenomegaly, not elsewhere classified Hepatitis Panel Acute 09/08/22 R16.0 - Hepatomegaly, not elsewhere classified, R16.1 - Splenomegaly, not elsewhere classified Angiotensin Convert Enzyme 09/08/22 R16.0 - Hepatomegaly, not elsewhere classified, R16.1 - Splenomegaly, not elsewhere classified AFP, Tumor Marker 09/08/22 R16.0 - Hepatomegaly, not elsewhere classified, R16.1 - Splenomegaly, not elsewhere classified ANCA 09/08/22 R16.0 - Hepatomegaly, not elsewhere classified, R16.1 - Splenomegaly, not elsewhere classified Anti-Smooth Muscle ABS 09/08/22 R16.0 - Hepatomegaly, not elsewhere classified, R16.1 - Splenomegaly, not elsewhere classified Ceruloplasmin 09/08/22 R16.0 - Hepatomegaly, not elsewhere classified, R16.1 - Splenomegaly, not elsewhere classified CMV Antibody IgG 09/08/22 R16.0 - Hepatomegaly, not elsewhere classified, R16.1 - Splenomegaly, not elsewhere classified Copper, Serum or Plasma 09/08/22 R16.0 - Hepatomegaly, not elsewhere classified, R16.1 - Splenomegaly, not elsewhere classified EBV Acute Prof IgG / IgM 09/08/22 R16.0 - Hepatomegaly, not elsewhere classifie d, R16.1 - Splenomegaly, not elsewhere classified Haptoglobin 09/08/22 R16.0 - Hepatomegaly, not elsewhere classified, R16.1 - Splenomegaly, not elsewhere classified Ammonia 09/08/22 R16.0 - Hepatomegaly, not elsewhere classified, R16.1 - Splenomegaly, not elsewhere classified Abdomen Limited 09/08/22 R16.0 - Hepatomegaly, not elsewhere classified, R16.1 - Splenomegaly, not elsewhere classified Elastography Parenchyma/Organ 09/08/22 R16.0 - Hepatomegaly, not elsewhere classified, R16.1 - Splenomegaly, not elsewhere classified Coding Level of Care Code Off vis,new,level 4 Diagnoses Gynecomastia N62 Marijuana use F12.90 Hiatal hernia K44.9 Hepatomegaly R16.0 Splenomegaly R16.1 I have examined the patient and the H&P has been reviewed. There are no clinical changes since date of exam.
--- NOTE | 2023-01-22 12:20 | OP.CCLET_ITS ---
01/22/2023 No Primary Care Physician Re : Upper GI endoscopy procedure for Jesse Fitzpatrick Dear Care Physician This procedure was performed on Sunday, January 22, 2023. My impressions and recommendations are as follows: Impressions : - LA Grade B reflux esophagitis. Biopsied. - Chronic gastritis. Biopsied. - Erythematous duodenopathy. Biopsied. Recommendations : - Discharge patient to home. - Resume previous diet. - Continue present medications. - Await pathology results. 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 - Stop omeprazole and start pantoprazole 40 mg p.o. twice daily My findings are described in the full procedure note, which is enclosed. If I can be of further assistance, please feel free to contact me at . Sincerely, Rl Cartwright, 01/22/2023 12:20:09 PM This report has been signed electronically.
--- NOTE | 2023-01-22 12:20 | OP.EGD_ITS ---
Patient Name: Jesse Fitzpatrick Procedure Date: 01/22/2023 11:40 AM Date of : 1995 Age: 27 Procedure: Upper GI endoscopy Indications: Epigastric abdominal pain, Heartburn Providers: Rl Cartwright DO Medicines: Monitored Anesthesia Care Patient Profile: This is a 27 year old male. Refer to note in patient chart for documentation of history and physical. Patient has symptoms of chronic epigastric abdominal pain. Complications: No immediate complications. Procedure: Pre-Anesthesia Assessment: - Prior to the procedure, a History and Physical was performed, and patient medications and allergies were reviewed. The risks and benefits of the procedure and the sedation options and risks were discussed with the patient. All questions were answered and informed consent was obtained. Patient identification and proposed procedure were verified by the physician. Mental Status Examination: normal. CV Examination: normal. Prophylactic Antibiotics: The patient does not require prophylactic antibiotics. Prior Anticoagulants: The patient has taken no previous anticoagulant or antiplatelet agents. After reviewing the risks and benefits, the patient was deemed in satisfactory condition to undergo the procedure. The anesthesia plan was to use monitored anesthesia care (MAC). Immediately prior to administration of medications, the patient was re-assessed for adequacy to receive sedatives. The heart rate, respiratory rate, oxygen saturations, blood pressure, adequacy of pulmonary ventilation, and response to care were monitored throughout the procedure. The physical status of the patient was re-assessed after the procedure. After obtaining informed consent, the endoscope was passed under direct vision. Throughout the procedure, the patient's blood pressure, pulse, and oxygen saturations were monitored continuously. The colonoscope was introduced through the mouth, and advanced to the second part of duodenum. The upper GI endoscopy was accomplished without difficulty. The patient tolerated the procedure well. 1 cm papilloma seen on the epiglottis. Scope In: 11:51:17 AM Scope Out: 11:56:43 AM Total Procedure Duration Time 0 hours 5 minutes 26 seconds Findings: LA Grade B (one or more mucosal breaks greater than 5 mm, not extending between the tops of two mucosal folds) esophagitis with no bleeding was found. Biopsies were taken with a cold forceps for histology. Verification of patient identification for the specimen was done. Estimated blood loss was minimal. Patchy mild inflammation characterized by erythema was found in the gastric body. Biopsies were taken with a cold forceps for histology. Verification of patient identification for the specimen was done. Patchy mildly erythematous mucosa without active bleeding and with no stigmata of bleeding was found in the duodenal bulb. Biopsies were taken with a cold forceps for histology. Verification of patient identification for the specimen was done. Estimated blood loss was minimal. Impression: - LA Grade B reflux esophagitis. Biopsied. - Chronic gastritis. Biopsied. - Erythematous duodenopathy. Biopsied. Recommendation: - Discharge patient to home. - Resume previous diet. - Continue present medications. - Await pathology results. 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 - Stop omeprazole and start pantoprazole 40 mg p.o. twice daily Procedure Code(s): --- Professional --- 57099, Esophagogastroduodenoscopy, flexible, transoral; with biopsy, single or multiple CPT copyright 2017 [employer]. All rights reserved. The codes documented in this report are preliminary and upon time study engineer review may be revised to meet current compliance requirements. Rl Cartwright DO 01/22/2023 12:20:09 PM This report has been signed electronically. Number of Addenda: 0 Note Initiated On: 01/22/2023 11:40 AM
--- NOTE | 2023-01-22 12:24 | OP.COLON_ITS ---
Patient Name: Jesse Fitzpatrick Procedure Date: 01/22/2023 11:57 AM Date of : 1995 Age: 27 Procedure: Colonoscopy Indications: Generalized abdominal pain, Clinically significant diarrhea of unexplained origin Providers: Rl Cartwright DO Medicines: Monitored Anesthesia Care Patient Profile: This is a 27 year old male. Refer to note in patient chart for documentation of history and physical. Patient has symptoms of chronic epigastric abdominal pain. Last Colonoscopy: none. The patient's first colonoscopy is today. Complications: No immediate complications. Procedure: Pre-Anesthesia Assessment: - Prior to the procedure, a History and Physical was performed, and patient medications and allergies were reviewed. The risks and benefits of the procedure and the sedation options and risks were discussed with the patient. All questions were answered and informed consent was obtained. Patient identification and proposed procedure were verified by the physician. Mental Status Examination: normal. CV Examination: normal. Prophylactic Antibiotics: The patient does not require prophylactic antibiotics. Prior Anticoagulants: The patient has taken no previous anticoagulant or antiplatelet agents. After reviewing the risks and benefits, the patient was deemed in satisfactory condition to undergo the procedure. The anesthesia plan was to use monitored anesthesia care (MAC). Immediately prior to administration of medications, the patient was re-assessed for adequacy to receive sedatives. The heart rate, respiratory rate, oxygen saturations, blood pressure, adequacy of pulmonary ventilation, and response to care were monitored throughout the procedure. The physical status of the patient was re-assessed after the procedure. After I obtained informed consent, the scope was passed under direct vision. Throughout the procedure, the patient's blood pressure, pulse, and oxygen saturations were monitored continuously. The colonoscope was introduced through the anus and advanced to the terminal ileum. The colonoscopy was performed without difficulty. The patient tolerated the procedure well. The quality of the bowel preparation was fair. Scope In: 12:02:52 PM Scope Withdrawal Time 0 hours 10 minutes 46 seconds Scope Out: 12:13:44 PM Total Procedure Duration Time 0 hours 10 minutes 52 seconds Findings: The perianal and digital rectal examinations were normal. A small amount of stool was found in the rectum, in the recto-sigmoid colon, in the sigmoid colon and in the transverse colon, precluding visualization. An area of mildly congested mucosa was found in the sigmoid colon and at the hepatic flexure. Biopsies were taken with a cold forceps for histology. Verification of patient identification for the specimen was done. Estimated blood loss was minimal. The terminal ileum contained a few three mm ulcers. No bleeding was present. No stigmata of recent bleeding were seen. Biopsies were taken with a cold forceps for histology. Verification of patient identification for the specimen was done. Estimated blood loss was minimal. Impression: - Preparation of the colon was fair. - Stool in the rectum, in the recto-sigmoid colon, in the sigmoid colon and in the transverse colon. - Congested mucosa in the sigmoid colon and at the hepatic flexure. Biopsied. - A few ulcers in the terminal ileum. Biopsied. Recommendation: - Discharge patient to home. - Resume previous diet. - Continue present medications. - Await pathology results. - MRI enterography to look for small bowel Crohn's disease - Repeat colonoscopy is recommended. The colonoscopy date will be determined after pathology results from today's exam become available for review. Procedure Code(s): --- Professional --- 97840, Colonoscopy, flexible; with biopsy, single or multiple CPT copyright 2017 [employer]. All rights reserved. The codes documented in this report are preliminary and upon signal constructor review may be revised to meet current compliance requirements. Rl Cartwright DO 01/22/2023 12:24:04 PM This report has been signed electronically. Number of Addenda: 0 Note Initiated On: 01/22/2023 11:57 AM
--- NOTE | 2023-01-22 12:24 | OP.CCLET_ITS ---
01/22/2023 No Primary Care Physician Re : Colonoscopy procedure for Jesse Fitzpatrick Dear Care Physician This procedure was performed on Sunday, January 22, 2023. My impressions and recommendations are as follows: Impressions : - Preparation of the colon was fair. - Stool in the rectum, in the recto-sigmoid colon, in the sigmoid colon and in the transverse colon. - Congested mucosa in the sigmoid colon and at the hepatic flexure. Biopsied. - A few ulcers in the terminal ileum. Biopsied. Recommendations : - Discharge patient to home. - Resume previous diet. - Continue present medications. - Await pathology results. - MRI enterography to look for small bowel Crohn's disease - Repeat colonoscopy is recommended. The colonoscopy date will be determined after pathology results from today's exam become available for review. My findings are described in the full procedure note, which is enclosed. If I can be of further assistance, please feel free to contact me at . Sincerely, Rl Cartwright DO 01/22/2023 12:24:04 PM This report has been signed electronically.
== END 2023-01-22 13:00 | disposition home or self-care (01) ==
LOC: EN 10:49 → AC 10:51
PROVIDERS: Visit Provider Internal Medicine Gastroenterology
PROC: 0DJD8ZZ Inspection of Lower Intestinal Tract, Via Natural or Artificial Opening Endoscopic (ICD-10-PCS; CPT 45378; principal; 2023-01-22 11:40)
DX: K21.00 Gastro-esophageal reflux disease with esophagitis, without bleeding (principal); F12.90 Cannabis use, unspecified, uncomplicated; K29.50 Unspecified chronic gastritis without bleeding; K31.89 Other diseases of stomach and duodenum; D14.1 Benign neoplasm of larynx; K63.3 Ulcer of intestine; K44.9 Diaphragmatic hernia without obstruction or gangrene; N62 Hypertrophy of breast; R16.2 Hepatomegaly with splenomegaly, not elsewhere classified; R19.7 Diarrhea, unspecified; F17.210 Nicotine dependence, cigarettes, uncomplicated
CPT/HCPCS: 43239; 45380; 88305; 88313; J7120; J2405

== ENCOUNTER → 2023-04-25 | Outpatient (CLI) | payer MEDICAID, SELFPAY ==
--- NOTE | 2023-04-25 09:14 | MRI_ITS ---
MR Enterography Abdomen/Pelvis WO/W Contrast 04/25/2023 10:34 AM COMPARISON: CT 01/07/2022 CLINICAL HISTORY: R10.9 - Unspecified abdominal pain -- abd pain, Colonoscopy suggestive of Crohn''s diseas TECHNIQUE: Following oral administration of enteric contrast and administration of glucagon, multiplanar T1 and T2 weighted images along with dynamic post-gadolinium images were obtained through the abdomen and pelvis. 25 cc of IV Clariscan was used. FINDINGS: GI Tract: Few short segment loops of proximal small bowel demonstrating mild circumferential wall thickening and minimal mucosal hyperenhancement. The terminal ileum is normal. The colon is normal. No stricture, fistula, or obstruction. No drainable fluid collections. Liver: Unremarkable Gallbladder: Unremarkable Spleen: Unremarkable Pancreas: Unremarkable Adrenal Glands: Unremarkable Kidneys: Unremarkable Reproductive: Unremarkable Bladder: Unremarkable Lymphadenopathy: Absent Ascites: Absent Bones: No suspicious lesions MRI/Enterography Abd/Pel IMPRESSION: Findings could represent mild infectious versus inflammatory enteritis. The terminal ileum is normal. The colon is normal. No stricture, fistula, or obstruction. No drainable fluid collections. Electronically Signed: Jonnie Mahmood MD at 16:42 EDT ,
[2023-04-25 09:33] VITALS: BP 142/76; PULSE 66; RESP 18; O2SAT 96; BMI 40.6
[2023-04-25] MEDS: 0.9% Saline Lock 10 ML Syringe IV (10:00)
[2023-04-25] MEDS: Glucagon 1 MG/ML Syringe IV (10:56)
[2023-04-25 11:14] VITALS: BP 146/97; PULSE 57; RESP 18; O2SAT 97
== END | disposition home or self-care (01) ==
LOC: MRI 09:09
PROVIDERS: Referring Provider Internal Medicine Gastroenterology; Visit Provider Internal Medicine Gastroenterology
DX: R10.9 Unspecified abdominal pain (principal); R93.3 Abnormal findings on diagnostic imaging of other parts of digestive tract
CPT/HCPCS: 74183; 96374; A9575; A4216; J1610